=== PATIENT | female | born 1940 | race Caucasian/White ===

== ENCOUNTER 2019-04-18 16:28 | Inpatient (IN) | payer MEDICARE, OTHER ==
[~2019-04-18] VITALS: Ht 162.6 cm; Wt 83.2 kg
--- NOTE | 2019-04-18 17:07 | NUR ---
KALEN Barajas assisted pt out of car, brought to unit in wheelchair, hendrix to DD, yellow-lionel urine, daughter Erin accompained pt. Pt has nausea, reports having a milkshake on the way here.
[2019-04-18] MEDS ORDERED: DULCOLAX S10 MG/SUPP RC (17:30)
[2019-04-18] MEDS ORDERED: CORRECTIVE LAXAT5 MG PO (17:30)
[2019-04-18] MEDS ORDERED: GOOD NEIGH1200 MG/15 PO (17:32)
[2019-04-18] MEDS ORDERED: ROBAXIN 75750 MG/TAB PO (17:33)
[2019-04-18] MEDS ORDERED: PERCOCET 325 MG1 TA2 PO (17:34)
[2019-04-18] MEDS ORDERED: ZOFRAN 4MG T4 MG/TAB PO (17:34)
[2019-04-18] MEDS ORDERED: DULCOLAX STOOL100 MG PO (17:35)
[2019-04-18] MEDS ORDERED: CALCIUM CITRATE1 TA7 PO (17:35)
[2019-04-18] MEDS ORDERED: HCTZ 25MG TAB25 MG PO (17:35)
[2019-04-18] MEDS ORDERED: LIDODERM 5% PATC1 EA TP (17:36)
[2019-04-18] MEDS ORDERED: MOTRIN 600600 MG/TAB PO (17:36)
[2019-04-18] MEDS ORDERED: NEURONTIN100 MG/CAP PO (17:37)
[2019-04-18] MEDS ORDERED: CLARITIN 1010 MG/TAB PO (17:38)
[2019-04-18] MEDS ORDERED: FLONASE NASAL S16 GM NS (17:39)
[2019-04-18] MEDS ORDERED: ABILIFY 15MG TA15 MG PO (17:39)
[2019-04-18] MEDS ORDERED: TENORMIN 5050 MG/TAB PO (17:40)
[2019-04-18 17:46] VITALS: BP 150/51; PULSE 76; TEMP 98.9
[2019-04-18 17:48] VITALS: BP 150/51; PULSE 76; TEMP 98.9
[2019-04-18] MEDS ORDERED: ROXICODONE 55 MG/TAB PO (18:03)
--- NOTE | 2019-04-18 19:35 | NUR ---
Pt resting in bed. Admission assessment completed. No distress noted. Daughter went home for the night. Pt denies pain at this time. Reports that she is feeling slightly nauseated. She refused her dinner tray. Respiraitons are even and unlabored. Lungs clear to ausculation. Abdomen soft, nontender but rounded. BS are hypoactive. Pt has not had a BM since 04/15. Bowel meds will be started at HS. Indwelling hendrix catheter to dependent drainage with lionel, cloudy urine in bag. Catheter will be discontinued in AM. Bilateral TEDS in place. Pedal pulses equal, strong. Pt is alert and oriented. No needs noted. Will continue to monitor.
--- NOTE | 2019-04-18 20:02 | NUR ---
Bedside report to MINH Liu. Erin padilla. Reviewed plan to administer bowel meds and nausea meds and oxycodone for pain. Turned bed alarm on, TEDS to BLE, knees elevated on pillows, pt avoids twisting, some difficulty with communication: understanding/responding appropriately, reports hearing aids at home. Reported to Alexa that 5 page admission needs completed. Ordered pt supper but declined. Suarez to dependent drainage.
--- NOTE | 2019-04-18 20:30 | NUR ---
Pt drank was able to tolerate an Ensure, as well as other fluids, but refuses any food. HS meds given. Bilateral SCDs placed. Catheter care preformed.
--- NOTE | 2019-04-19 05:40 | NUR ---
Pt c/o pain 5/10 in back. PRN zofran administered prior to pain medication per patient request.
--- NOTE | 2019-04-19 05:50 | NUR ---
Suarez catheter discontinued per MD order. 9cc removed from catheter balloon prior to discontinuation. Well tolerated by patient.
[2019-04-19 06:00] VITALS: BP 143/57; PULSE 76; TEMP 98.6
--- NOTE | 2019-04-19 08:55 | NUR ---
Bedside report from MINH Liu with MINH Graves orientee. HOB at 60*, call lt in reach, eating breakfast. Cont c/o nausea, drowsiness from Percoset, requests oxycodone instead. Has not voided since d/c simeon per Alexa. Left message for IPR director as to which physician will do H&P. Dressing to low back. Enc PO intake. Pt with PT per w/c with emesis basin, requested PT inform RN of any output.
--- NOTE | 2019-04-19 09:00 | NUR ---
REPORT RECEIVED FROM TEACHERS AIDE NURSE, PATIENT REPORTS SHE DOES NOT LIKE TAKING PERCOCET, THAT IT MAKES HER FEEL OFF. AFTER DISCUSSION, STATES SHE WOULD LIKE TO TAKE OXYCODONE INSTEAD. INFORMED PATIENT DR RAMOS WILL BE INFORMED THAT SHE DOES NOT WANT TO TAKE PERCOCET ANYMORE. CALL LIGHT/WATER PITCHER WITHIN PATIENT'S REACH. BED IN LOW POSITION.
--- NOTE | 2019-04-19 15:00 | NUR ---
PATIENT REFUSED OFFER OF ZOFRAN WHEN OFFERED OXYCODONE, REPORTS NO STOMACH ISSUES. UP WITH 1 PERSON ASSIST TO BATHROOM WITH GAIT BELT/WALKER. REINFORCED WITH PATIENT AND DAUGHTER TO CALL STAFF WHEN NEEDING TO GO TO BATHROOM AFTER OBSERVED BY STAFF AIDE THAT PATIENT HAD BEEN WALKED TO BATHROOM BY DAUGHTER AT PATIENT'S INSISTENCE. PATIENT AGREED TO CALL STAFF FROM NOW ON.
--- NOTE | 2019-04-19 16:27 | NUR ---
Agree with Ely's assessment, noted lungs coarse throughout at this time. Observed dressing change to low lumbar area, small amount of sanguinous drainage, edith intact, old dressing removed, new gauze and hypafix applied. Pt adi well while sitting bedside. Home meds returned to daughter, Erin, papers signed. Pt to bed with SCDs to BLE, edu about log rolling.
[2019-04-19 18:17] VITALS: BP 152/65; PULSE 80; TEMP 99.5
--- NOTE | 2019-04-19 18:59 | NUR ---
REPORT GIVEN TO CHALK TESTER NURSE WITH CARE RESUMED. CALL LIGHT/WATER PITCHER WITHIN PATIENT'S REACH. PATIENT RESTING QUIETLY WITH EYES CLOSED.
--- NOTE | 2019-04-19 20:45 | NUR ---
Upon assessment at this time patient is assisted to bathroom; standby assist with gait belt and walker. Patient tolerated well. Dressing to lower back is CDI, placed this afternoon per day shift. Patient has voided adequately throughout day since having hendrix discontinued in am; clear yellow urine noted. Patient is reporting pain at 7/10 to low back, PRN Arin given at this time with HS medications. No other needs reported/observed.
[2019-04-20 05:49] VITALS: BP 149/56; PULSE 71; TEMP 98.5
--- NOTE | 2019-04-20 07:07 | NUR ---
Patient report given to MINH Roman and MINH Ambrose. Patient slept well throughout the night, tolerated getting up to bathroom with standby assist, walker and gait belt.
--- NOTE | 2019-04-20 07:23 | NUR ---
Patient report given to MINH Ambrose. Patient reported resting well throughout the night, still resting at this time. No needs observed.
--- NOTE | 2019-04-20 07:35 | NUR ---
Report from MINH Gardiner with MINH Graves orientee to care for pt today. Pt called to toilet, returned to bed by staff, eating breakfast.
--- NOTE | 2019-04-20 08:01 | NUR ---
RECEIVED REPORT FROM RETAIL LOAN OFFICER NURSE. CURRENTLY PATIENT RESTING IN BED WITH EYES CLOSED, DOES NOT AROUSE WHEN ROOM ENTERED WITH OBSERVED SNORING BREATHING BUT NONLABORED AND EVEN/NORMAL DEPTH AND RATE. CALL LIGHT/WATER/JUICE WITHIN PATIENT'S REACH. BED IN LOW POSITION, TV ON. SCD OFF CURRRENTLY.
--- NOTE | 2019-04-20 15:00 | NUR ---
DRESSING CHANGED TO LOW BACK INCISION, INTACT WITH LATESHA, OBSERVED DRIED RED DRAINAGE TO OLD DRESSING MOSTLY TO LOWER HALF OF DRESSING, NO ACTIVE OOZING FROM INCISION OBSERVED. NO REDNESS TO INCISION, DID OBSERVED SOME REDNESS TO AREAS FROM TAPE/ADHESIVE WITH PATIENT COMPLAINING OF ITCHING. ALCOHOL PAD LIGHTLY APPLIED TO RED/ITCHING TAPE AREAS THAT PATIENT REPORTED HELPED WITH ITCHING C/O. UP TO BATHROOM WITH 1 SBA W/GAIT BELT/WHEELED WALKER WITH NO PROBLEMS. STILL NO BM YET TODAY.
[2019-04-20 18:00] VITALS: BP 149/59; PULSE 79; TEMP 98.6
--- NOTE | 2019-04-20 20:00 | NUR ---
PT RESTING IN BED. FLAT AFFECT. BUE/ BLE WARM AND PINK. DENIES NUMBNESS OR TINGLING. SEE MAR FOR PAIN MEDICATIONS GIVEN. ASSISTED TO BR WITH WALKER. NEEDS MIN ASSIST TO SITTING BUT ABLE TO STAND INDEPENDENTLY. VOIDING WITHOUT DIFFICULTIES. BACK TO BED. CALL LIGHT IN REACH. BED ALARM SET.
--- NOTE | 2019-04-20 21:09 | NUR ---
REPORTS GIVEN TO SEWER BRICKLAYER NURSE. PATIENT RESTING WITH EYES CLOSED, DOES NOT AROUSE WITH ENTERING ROOM FOR REPORT.
[2019-04-21 03:09] VITALS: BP 146/58; PULSE 94; TEMP 98
--- NOTE | 2019-04-21 06:35 | NUR ---
UP IN RECLINER THIS AM. C/O BACK INCISIONAL PAIN. SEE AUG.CHAIR ALARM SET. CALL LIGHT IN REACH.
--- NOTE | 2019-04-21 08:12 | NUR ---
Patient resting in recliner at this time, call light in reach and chair alarm is on. Patient reports only drinking ensure when at home. Feels breakfast plate serves way too much. Is over whelming for her to see. Patient uses IS correctly and reaches 1500. Will continue to monitor.
--- NOTE | 2019-04-21 13:31 | NUR ---
Admission QIM scores were reviewed by the team. Code of 5 chosen for oral hygiene was determined by team discussion to be the most usual performance before interventions for this patient during the assessment period. Code of 3 chosen for lying to sitting on side of bed was determined by team discussion to be the most usual performance before interventions for this patient during the assessment period. Code of 4 chosen for Chair/[id number]-ol-[id number] transfer was determined by team discussion to be the most usual performance for this patient during the assessment period.--Sugey Baig, PD
--- NOTE | 2019-04-21 15:24 | NUR ---
RAHEEL met with the patient to discuss discharge plan. The patient lives alone in [place]. She states that her [id number] rents a room in her house. She states that her daughter, Erin Perez (ph#[phone]), lives close by. She reports needing assistance with bathing and has a cane, walker, and wheelchair. She states that her daughter helps her with the bathing and that she used to have home health. The patient's PCP is a Dr. Daly at the [facility] in [place] and she also receives primary care from Dr. Peggy Johansen at [facility]. She receives her medications through the [facility] and the [facility]. She reports no difficulties obtaining her meds. The patient does not have advanced directives in EMR, but she states that she does have them completed. She states that her daughter, Erin, is her DPOA-HC. RAHEEL then contacted the patient's daughter and set up a family meeting for Sunday, 04/23, at 1400. RAHEEL informed IPR Director. RAHEEL to continue to follow.
[2019-04-21 18:25] VITALS: BP 155/51; PULSE 77; TEMP 98.4
[2019-04-21 19:54] LABS: PH 8 (5-8); SQUAMOUS EPITHELIAL 0-2 /hpf; URINE APPEARANCE Clear; URINE BACTERIA None Seen /hpf; URINE BILIRUBIN Negative (NEGATIVE); URINE BLOOD Negative (NEGATIVE); URINE COLOR Yellow; URINE GLUCOSE Negative (NEGATIVE); URINE KETONE Negative (NEGATIVE); URINE LEUKOCYTE ESTERASE Trace (NEGATIVE); URINE NITRATE Negative (NEGATIVE); URINE PROTEIN(semi-quant) Negative (NEGATIVE); URINE RBC 0-2 /hpf; URINE UROBILINOGEN Negative (NEGATIVE)
--- NOTE | 2019-04-21 21:00 | NUR ---
PT RESTING IN BED. FLAT AFFECT. DENIES NEED FOR PAIN MED AT THIS TIME. NO NUMBNESS OR TINGLING TO EXTREMITIES. AMB WITH WALKER. STEADY GAIT. VOIDING WITHOUT DIFFICULTY. UA OBTAINED EARLIER AND SENT TO LAB.
[2019-04-21 21:11] LABS: COLLECTION METHOD CLEAN CATCH
--- NOTE | 2019-04-22 03:33 | NUR ---
PT RESTING. NO DISTRESS NOTED.
[2019-04-22 05:32] VITALS: BP 140/59; PULSE 74; TEMP 97.3
--- NOTE | 2019-04-22 07:17 | NUR ---
REPORT RECEIVED FROM NIGHT NURSE, PATIENT RESTING IN BED WITH CALL LIGHT/WATER CUP WITHIN REACH BUT WANTED TO GO TO BATHROOM, AMB W/1 ASST/GAIT BELT/WHEELED WALKER WITH OBSERVED STEADY GAIT.
--- NOTE | 2019-04-22 09:02 | NUR ---
OBSERVED PATIENT LEANING OVER AT WAIST TO HAVE PERICARE AFTER BM, REMINDED PATIENT OF BACK PRECAUTIONS AND NOT TO LEAN FORWARD.
--- NOTE | 2019-04-22 12:20 | NUR ---
REPORTS PAIN LEVEL 6/10 TO BACK, REFUSES OFFER OF PAIN MEDS AT THIS TIME.
--- NOTE | 2019-04-22 13:40 | NUR ---
CONFIRMED WITH LAB, URINE SPEC STILL AVAILABLE FROM 04/21. ORDER WILL BE PROCESSED FOR UA CULTURE.
--- NOTE | 2019-04-22 15:03 | NUR ---
VENIPUNCTURE WITH #22 GUAGE INSYTE W/SALINE LOCK, FLUSHED WITHOUT PROBLEMS TO LEFT LOWER FOREARM PER DO FOR IV ROCEPHIN TX TO INITIATE.
[2019-04-22 15:10] VITALS: BP 151/48; PULSE 69; TEMP 97.5
--- NOTE | 2019-04-22 16:17 | NUR ---
Flushed INT after ABX, no S/S complications.
--- NOTE | 2019-04-22 20:00 | NUR ---
Shift assessment complete. Patient ambulated to BR with assist x1 and walker. States pain 3/10 in back. Drsg on midline back CDI. Prn pain medication given per pt request. Back to bed. SCD's placed on BLE. Daughter at bedside. Denies further needs at this time. Will continue to monitor.
[2019-04-23 03:13] VITALS: BP 144/58; PULSE 72; TEMP 97.6
[2019-04-23 12:45] VITALS: BP 130/54; PULSE 68
--- NOTE | 2019-04-23 12:47 | NUR ---
Patient reporting a headache and given prn Tylenol. VSS - Will continue to monitor.
--- NOTE | 2019-04-23 17:15 | NUR ---
SW attended a family meeting with the patient and her daughter, Erin. Also present was IPR Director, PT, OT, & ST. IPR Director, Sugey, started by explaining the purpose of the meeting. PT/OT/ST discussed the patient's progress and their recommendations of a discharge for next Sunday with home health PT/OT and the possibility of needing a walker, depending on her progress. The patient's daughter reports that home health will not work, due to the patient's house having bed bugs. The patient and her daughter were agreeable to outpatient PT/OT. The patient's daughter reports that she would be able to provide transport, until the patient is able to drive. The team answered all patient and daughter's questions. SW then presented and discussed the IPR Team Conference Note with the patient and reviewed the plan. The patient was in agreeance to a discharge for next Sunday. SW provided the patient with a list of the different therapy centers in [place]. The patient plans to look it over. The patient also provided SW with the [facility] phone number #[phone] to inform their SW about the services she needs. The patient had no other questions or concerns for SW at this time. SW will need to follow up on outpatient therapy preference and contact the Women's Clinic. SW to continue to follow.
--- NOTE | 2019-04-23 18:01 | NUR ---
Patient resting in bed at this time, call light in reach and bed alarm is on. Patient was a one assist with walker to and from the bathroom. Denies pain at this time. Patient had a shower today and OT covered incision and made sure to remove tape immediatly following to prevent any irritation. Patient's daughter stopped by and visited. Patient culture has come back normal at this time, but Dr. Bennett wants to continue the Rocephin at this time until the final culture results have come in. Will continue to monitor. Patient doesn't like wearing her gema hose, but did agree to put them on this afternoon. Will continue to monitor.
[2019-04-23 18:22] VITALS: BP 139/53; PULSE 66; TEMP 98.2
--- NOTE | 2019-04-23 22:22 | NUR ---
PT RESTING IN BED, WATCHING TV. DENIES NEED FOR PAIN MEDICATION AT THIS TIME. PT REPORTS LOOSE STOOLS. BOWEL MEDS HELD. STILL HAS MILD BURING WITH VOIDS. GETS ROCEPHIN IV FOR THIS. KNEE HI JACE HOSE OFF. SCD'S ON BILAT. CALL LIGHT IN REACH. BED ALARM SET.
--- NOTE | 2019-04-24 04:51 | NUR ---
PT HAS SLEPT WELL THIS NIGHT.
[2019-04-24 06:00] VITALS: BP 127/49; PULSE 63; TEMP 97.8
--- NOTE | 2019-04-24 10:44 | NUR ---
Patient working with group therapy at this time. This nurse received call from Nevaeh reporting that patient was not feeling like herself. This nurse took vitals and they were stable see chart. VSS. Blood sugar checked and was in normal range. Patient was given some water thinking that maybe she was just dehydrated this morning. Will continue to monitor.
[2019-04-24 16:36] VITALS: BP 132/40; PULSE 73; TEMP 97.6
--- NOTE | 2019-04-24 20:26 | NUR ---
Patient did not have any other episodes such as not feeling right this afternoon. She had visitors this afternoon. She received her IV antibiotic. Dr. Bennett changed this IV antibiotic to PO to start this evening. Patient wore gema hose today. She was able to control her pain with prn Arin and Tylenol today. Patient attended all therapies today. Denied questions this evening. Will continue to monitor. Reported off to night nurse.
--- NOTE | 2019-04-24 21:00 | NUR ---
PT REFUSED BOWEL MEDS AND GABAPENTIN TONIGHT. PT RELATES HAD SEVERAL LOOSE BOWL MOVEMENTS YESTERDAY AND ONE TODAY. GABAPENTIN REFUSED D/T CAUSED INCREASED FATIGUE AND STRESS INCONTINENCE TO INCREASE.
--- NOTE | 2019-04-24 23:26 | NUR ---
ASSISTED TO BR /WALKER. SBA ONLY. VOIDING WITH STILL SOME BURNING. UAC CONTAMINATED. STILL CONTINBUING WITH ORAL ABT.
[2019-04-25 06:00] VITALS: BP 128/64; PULSE 67; TEMP 97.8
--- NOTE | 2019-04-25 13:13 | NUR ---
Morning Report from MINH Turcios. Pt plans to discharge home Sunday with outpatient therapy. Pt declined pain meds while still in bed, once she toileted, she requested an Oxycodone, provided, then she called for the second one an hour later. Pt showered this morning, OT informed nurse that the dressing may have gotten wet. Removed old dressing, scant dark dry pieces of scabs coming off. Presley intact. No active drainage, edges well approximated. Applied new telfas with a minimal amount of paper tape, pt adi well. INT flushes without complications. Pt disliked lunch, states she was considering asking [facility]. Reports the carrots are still too tough. No c/o nausea. Reminded pt of back restrictions.
--- NOTE | 2019-04-25 15:12 | NUR ---
RAHEEL attempted to contact the [facility]. RAHEEL left them a voicemail. RAHEEL met with the patient to follow up. She states that she is doing good and that therapy has been going well, except for PT today. She states that PT gave her some back pain. The patient states that she was able to look over the therapy center list and would prefer the [facility], due to it being closer to where she works. She states she prefers the PT/OT appointment on the same down and in the afternoon, on Sunday/ if available. RAHEEL contacted Trey at the [facility]. Trey reports that they do not have their bookkeeper receptionist in today and would not be able to get that set up until Sunday. RAHEEL will need to contact [facility] on Sunday. RAHEEL to continue to follow.
[2019-04-25 15:50] VITALS: BP 138/57; PULSE 67; TEMP 98.1
--- NOTE | 2019-04-25 19:08 | NUR ---
Bedside report to MINH Stinson. Pt in bed, turned bed alarm on, call lt in reach, glasses in place, SCDs on. Pt denies needs, drinks on tray.
--- NOTE | 2019-04-25 20:00 | NUR ---
HS meds all reviewed and given. Denies need for pain med and reports neurontin will be sufficient/makes her drowsy. Up standby assist with walker to the bathroom and ambulates in hallway with nurse. Gait slow steady. Snack of cam crackers given.
--- NOTE | 2019-04-26 02:11 | NUR ---
Patient has been resting with eyes closed. Respirations with ease.
[2019-04-26 04:34] VITALS: BP 133/45; PULSE 60; TEMP 98.5
--- NOTE | 2019-04-26 08:00 | NUR ---
PATIENT IS SITTING UP WITH HER BREAKFAST TRAY IN THE CHAIR THIS MORNING. PATIENT IS A&OX4. VSS. BOWEL SOUNDS ACTIVE ALL FOUR QUADRANTS. PATIENT TOLERATING DIET WITHOUT ANY COMPLAINTS OF N/V. LUMBAR SPINAL INCISION DRESSED WITH GAUZE AND TAPE AND IS CD&I. POSITIVE PEDAL PULSES EQUAL BILATERALLY. LEFT FOREARM TO INT. CALL LIGHT WITHIN REACH. PATIENT DENIES ANY OTHER NEEDS AT THIS TIME.
--- NOTE | 2019-04-26 16:36 | NUR ---
PATIENTS SPINAL DRESSING REMOVED. LATESHA IN PLACE WITH EDGES WELL APPROXIMATED. SPINAL INCISION RE-DRESSED WITH 3 TELFA GAUZE PADS AND PAPER TAPE. PATIENT REPOSITIONED IN BED. PATIENT GIVEN PRN PO PAIN MEDICATION FOR PAIN RATED AN 6/10 ON A 0-10 SCALE. CALL LIGHT WITHIN REACH. PATIENT DENIES ANY OTHER NEEDS AT THIS TIME.
[2019-04-26 16:52] VITALS: BP 117/48; PULSE 61; TEMP 98.3
--- NOTE | 2019-04-26 18:59 | NUR ---
REPORT GIVEN TO MINH LEAL.
--- NOTE | 2019-04-26 19:07 | NUR ---
Patient resting quietly in bed. Report received from Renetta WILKINSON.
--- NOTE | 2019-04-26 20:15 | NUR ---
HS meds all reviewed and given. Denies need for pain med at this time. Ambulates to the bathroom and around to surgical station with walker accompanied by nurse and back to room. Declines snack.
--- NOTE | 2019-04-27 02:10 | NUR ---
Patient rests with eyes closed. Respirations with ease.
[2019-04-27 04:46] VITALS: BP 138/50; PULSE 70; TEMP 98.3
--- NOTE | 2019-04-27 12:51 | NUR ---
Patient resting in recliner at this time, call light in reach and alarm is on. She had visitors this morning and this afternoon. Patient was a one assist with walking with walker to the recliner and then returning to her bed. She was a one assist with transferring to the toilet. She wiped herself today independently. Dressing to back CDI. Reports pain 5/10 to back given prn pain meds. Will continue to monitor.
--- NOTE | 2019-04-27 15:49 | NUR ---
Patient refused to have her dressing changed to her back reporting that someone just did it. Dressing has no drainage and is clean dry and intact at this time. Will continue to monitor.
--- NOTE | 2019-04-27 15:51 | NUR ---
Patient lying in bed watching television, call light in reach and denies questions at this time.
[2019-04-27 17:20] VITALS: BP 138/72; PULSE 89; TEMP 98.9
--- NOTE | 2019-04-27 21:42 | NUR ---
Pt doing very well. standby assist for all cares. ambulated in hallway about 200ft. pm meds given. no concerns at this time. call light within reach, will continue to monitor
--- NOTE | 2019-04-28 03:09 | NUR ---
Pt has slept all night. No issues noted. Call light within reach, will continue to monitor
[2019-04-28 04:42] VITALS: BP 132/52; PULSE 66; TEMP 97.8
--- NOTE | 2019-04-28 09:14 | NUR ---
Bedside report from MINH Smallwood. Pt was asleep in bed, turned bed alarm on, pt denied pain. Pt calls appropriately to toilet, one asst by KALEN Barajas.
--- NOTE | 2019-04-28 09:39 | NUR ---
Pt's HR skips about every 7th beat, with some additional irregularity, slight murmur. Pt wants to be independent in room with walker, will ask therapy, observed pt transfer out of chair without device while KALEN Barajas was bringing to pt, she ambulated quick and steady to BR and returned to chair. Pt able to report her back precautions.
--- NOTE | 2019-04-28 10:41 | NUR ---
Pt out of shower, removed old dressing, no drainage on dressing, edith intact, edges well approximated, applied new telfa x2 and secured with paper tape per pt request. Pt adi well, cont with OT
--- NOTE | 2019-04-28 12:00 | NUR ---
Left message w/ neurosx office to clarify if pt needs to cont to cover incision after edith are removed by IPR staff prior to dc home.
--- NOTE | 2019-04-28 12:32 | NUR ---
Pt requested returning to general diet, she does not like the [facility] soft d/t texture and appearance of foods. Pt ate some mashed potatoes at lunch. Has ensure drink. Changed to reg diet per pt and Dr. Bennett.
--- NOTE | 2019-04-28 13:07 | NUR ---
Ordered pt an alt meal for lunch at 1240
[2019-04-28 15:20] VITALS: BP 138/47; PULSE 69; TEMP 98.1
--- NOTE | 2019-04-28 20:35 | NUR ---
Bedside report to MINH Santos. Pt was made mod I in Rm w/ walker. Bedresting watching TV, pleasant, glasses and slippers in place. Pt denies needs at this time. Pt liked returning to General diet. Birthday is tomorrow. Enc to call for any needs. Did not receive return call from neurosx office. Pt refused TEDS.
--- NOTE | 2019-04-29 04:00 | NUR ---
Patient has rested well throughout the night. Denies any need for pain medication. Independent in the room and utilizes the restroom independently. Dressing remains clean, dry, and intact to back. Will continue to monitor patient.
[2019-04-29 04:57] VITALS: BP 130/80; PULSE 65; TEMP 98.2
--- NOTE | 2019-04-29 08:01 | NUR ---
Patient sitting up on edge of bed eating breakfast. Alert and oriented x 3. Shift assessment complete. Patient independent in room with walker. States pain 6/10 after roxycodone administration, tylenol given per patient request. States generalized pain. Denies further needs at this time.
--- NOTE | 2019-04-29 09:38 | NUR ---
Explosives Truck Driver contacted [facility] to follow up on outpatient PT/OT appointments. SW was advised patient already had appointment for PT set up for 05/09/19 at 11:00am. RAHEEL made appointment for OT for 05/09/19 at 1:00pm and notified RNAisha.
[2019-04-29 16:48] VITALS: BP 132/48; PULSE 61; TEMP 97.4
--- NOTE | 2019-04-29 18:25 | NUR ---
Patient has done well throughout the day. Denies pain at this time. Denies further needs at this time. Dressing to back removed, edith intact, no drainage present. Denies further needs at this time. WIll report off to grocery specialist.
--- NOTE | 2019-04-29 18:50 | NUR ---
Bedside shift report received from Stacy WILKINSON. Patient Rests in bed. Denies needs at this time.
--- NOTE | 2019-04-29 20:35 | NUR ---
Patient mod I in room and ambulates with walker without difficulty. HS meds reviewed and given. Declines bowel med,states had bm this am.
--- NOTE | 2019-04-29 23:28 | NUR ---
RESTING WITH EYES CLOSED, LAYING ON RIGHT SIDE WITH UNRESTRICTED BREATHED OBSERVED.
--- NOTE | 2019-04-30 02:00 | NUR ---
Patient rests on right side. Respirations with ease.
[2019-04-30 05:18] VITALS: BP 126/56; PULSE 64; TEMP 98.1
--- NOTE | 2019-04-30 05:24 | NUR ---
Patient reports she slept well. Awakened this am by nurse for vitals and fresh icewater given. Denies pain or needs. States was up only once to the bathroom during the night.
--- NOTE | 2019-04-30 09:17 | NUR ---
This nurse removed edith to patients lower back removing 41 edith total. Edges to incision are well approximated. Patient tolerated with minimal discomfort reported. Will continue to monitor.
--- NOTE | 2019-04-30 09:24 | NUR ---
Patient is independent in her room at this time. Denies questions.
--- NOTE | 2019-04-30 12:27 | NUR ---
Patient resting in recliner independent in her room. Patient reporting pain less at this time. Will continue to monitor.
--- NOTE | 2019-04-30 13:46 | NUR ---
[employer]ables Worker was notified by JESSICA Mayes Director that patient requires front wheeled walker upon discharge. SW met with patient and presented DME Choice Form. Patient selected [facility] and provided signature. RAHEEL placed choice form in chart. RAHEEL faxed completed order, face sheet, H&P, and therapy notes to [facility] and then contacted Rayna at [facility]. RAHEEL followed up with patient later in the afternoon and confirmed walker had been delivered to her. No additional concerns at this time.
[2019-04-30] MEDS ORDERED: Lidocaine 4% Patch TP (14:29)
[2019-04-30] MEDS ORDERED: ROXICODONE 55 MG/TAB PO (14:37)
--- NOTE | 2019-04-30 16:06 | NUR ---
Ethanol Maintenance Mechanic met with patient and reviewed IM form. Patient understands rights and provided signature. SW placed original in chart and provided copy to patient. RAHEEL faxed discharge orders to [facility] as patient will follow up with outpatient PT/OT.
--- NOTE | 2019-04-30 17:36 | NUR ---
Patient Health Summary, Discharge Summary, and Home meds printed and reviewed with patient. Stressed importance of follow up appointments. Reviewed medications, provided printed prescription for Lidocaine patch and Roxicodone. Belonging gathered by JYOTI/Cailin including regular walker, wheeled walker, glasses, IS, Cane, grab bars, cell phone, computer, chargers. Patient transported via wheelchair by JYOTI/Cailin and seatbelted for ride home with family. Patient denied questions.
== END 2019-04-30 15:45 | disposition home or self-care (01) | DRG 948 ==
PROVIDERS: ADMIT Internal Medicine
DX: R53.81 Other malaise (principal); N39.0 Urinary tract infection, site not specified; M48.061 Spinal stenosis, lumbar region without neurogenic claudication; F32.9 Major depressive disorder, single episode, unspecified; E78.5 Hyperlipidemia, unspecified; D64.9 Anemia, unspecified; I10 Essential (primary) hypertension; G47.33 Obstructive sleep apnea (adult) (pediatric); Z79.891 Long term (current) use of opiate analgesic; Z87.891 Personal history of nicotine dependence; Z90.710 Acquired absence of both cervix and uterus; Z88.5 Allergy status to narcotic agent; Z88.8 Allergy status to other drugs, medicaments and biological substances
CPT/HCPCS: 99222-AI; 99232-AI; 99239; A4216; J0696

== ENCOUNTER 2020-01-01 14:15 | Outpatient (RCR) | payer MEDICARE, OTHER ==
[~2020-01-01 14:15] MED LIST: ABILIFY 15MG TA15 MG PO; CALCIUM CITRATE1 TA7 PO; CLARITIN 1010 MG/TAB PO; CORRECTIVE LAXAT5 MG PO; DULCOLAX S10 MG/SUPP RC; DULCOLAX STOOL100 MG PO; FLONASE NASAL S16 GM NS; FLONASEALLERGY NS; GOOD NEIGH1200 MG/15 PO; HCTZ 25MG TAB25 MG PO; IBU600 MG PO; LIDODERM 5% PATC1 EA TP; Lidocaine 4% Patch TP; MASON NATURAL2000 IU PO; MOTRIN 600600 MG/TAB PO; NEURONTIN100 MG/CAP PO; PERCOCET 325 MG1 TA2 PO; ROBAXIN 75750 MG/TAB PO; ROXICODONE 55 MG/TAB PO; TENORMIN 2525 MG/TAB PO; TENORMIN 5050 MG/TAB PO; ZOFRAN 4MG T4 MG/TAB PO
[2020-01-02] MEDS ORDERED: OS-CAL 500 + D1 TAB (07:00)
[2020-01-02] MEDS ORDERED: [UNRECOGNIZED DRUG - OTHER] DT (07:01)
[2020-01-02] MEDS ORDERED: MOBIC 7.5MG7.5 MG PO (07:04)
[2020-01-02] MEDS ORDERED: LIDODERM 5% PATC1 EA TP (07:05)
[2020-01-02] MEDS ORDERED: OMNICEF 300MG300 MG PO (15:26)
== END 2020-02-04 | disposition still patient (30) ==
LOC: MKS.ESL.PT
DX: M54.5 Low back pain (principal); R53.1 Weakness; R20.0 Anesthesia of skin; R29.898 Other symptoms and signs involving the musculoskeletal system; G89.29 Other chronic pain

== ENCOUNTER 2020-01-02 06:18 | Emergency (ER) | payer MEDICARE, OTHER ==
[~2020-01-02] VITALS: Ht 160 cm; Wt 84.1 kg
[2020-01-02] MEDS ORDERED: OS-CAL 500 + D1 TAB (07:00)
[2020-01-02 07:01] LABS: COLLECTION METHOD CLEAN CATCH
[2020-01-02] MEDS ORDERED: [UNRECOGNIZED DRUG - OTHER] DT (07:01)
[2020-01-02] MEDS ORDERED: MOBIC 7.5MG7.5 MG PO (07:04)
[2020-01-02] MEDS ORDERED: LIDODERM 5% PATC1 EA TP (07:05)
[2020-01-02 07:20] LABS: MUCOUS Present /lpf; PH 6 (5-8); SQUAMOUS EPITHELIAL 0-2 /hpf; URINE APPEARANCE Clear; URINE BACTERIA None Seen /hpf; URINE BILIRUBIN Negative (NEGATIVE); URINE BLOOD Negative (NEGATIVE); URINE COLOR Yellow; URINE GLUCOSE Negative (NEGATIVE); URINE KETONE Trace (NEGATIVE); URINE LEUKOCYTE ESTERASE 1+ (NEGATIVE); URINE NITRATE Negative (NEGATIVE); URINE PROTEIN(semi-quant) Negative (NEGATIVE); URINE RBC 0-2 /hpf; URINE UROBILINOGEN Negative (NEGATIVE)
[2020-01-02 07:45] LABS: BASO % 0.4 % (0.0-2.0); EOS # 0.1 (0.0-0.7); EOS % 0.9 % (0-4.0); GRAN # 7.7 (1.4-6.5); HEMATOCRIT 44.6 % (37.0-47.0); HEMOGLOBIN 14.3 g/dl (12.5-16.0); LYMPH # 1.7 (1.2-3.4); LYMPH % 16.8 % (20.0-51.0); MEAN CELL VOLUME 90 fl (80.0-100.0); MEAN CORPUSCULAR HEMOGLOBIN 29 pg (27.0-31.0); MEAN CORPUSCULAR HGB CONC 32 g/dl (33.0-37.0); MEAN PLATELET VOLUME 11.2 fl (7.4-10.4); MONO # 0.7 (0.1-0.6); MONO % 6.5 % (1.7-9.3); PLATELET COUNT 214 K/mm3 (130-400); RED BLOOD COUNT 4.94 M/mm3 (4.10-5.30); REDCELL DISTRIBUTION WIDTH-CV 14.3 % (11.5-14.5)
[2020-01-02 07:57] LABS: ALANINE AMINOTRANSFERASE 17 U/L (4-34); ALBUMIN 4.1 gm/dL (3.5-5.0); ALKALINE PHOSPHATASE 93 U/L (50-136); ANION GAP 6 mmol/L (7-16); AST,SGOT 26 U/L (15-37); BILIRUBIN,TOTAL 0.8 mg/dL (0.0-1.0); BLOOD UREA NITROGEN 19 mg/dL (7-17); CALCIUM 8.9 mg/dL (8.4-10.2); CARBON DIOXIDE 30 mmol/L (22-30); CHLORIDE 101 mmol/L (98-107); CREATININE, serum 0.65 (0.52-1.25); GLUCOSE 108 mg/dL (74-106); POTASSIUM 3.7 mmol/L (3.4-5.0); SODIUM 137 mmol/L (137-145); TOTAL PROTEIN 7.4 gm/dL (6.4-8.2)
[2020-01-02 08:09] LABS: TROPONIN-I < 0.012 ng/mL (0.000-0.035)
--- NOTE | 2020-01-02 09:34 | NUR ---
central supply worker met with patient in the ED as patient has had difficulty with ambulation and falling in the last month. 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 Patient is awaiting an MRI. Worker contacted patient's daughter, Erin, per patient request. Erin states that she and family have had to drive patient to work everyday and that she slowly ambulates with walker into her job site. Erin stated that 2 days ago, patient's brother in law had to help her pull up her pants after toileting. Worker collaborated with physician and nurse regarding disposition options. Will await a physical therapy consult after results of MRI to help with disposition. Worker contacted Althea with [facility] and requested a screening. Patient's primary care provider is Dr Johansen at the [facility]. Erin states that patient has traditional [place] and [place] benefits. Patient obtains some medications through the [facility] and some locally.
--- NOTE | 2020-01-02 13:01 | NUR ---
Physical therapy evaluated patient and recommend rehab placement as home would not be safe at this time. Inpatient Rehab and [facility] do not have openings today. [facility] screened and can accept skilled from the ED. Worker met with patient and contacted daughter, Bethel and advised of the above information and they are both agreeable to rehab plans. Awaiting MRI results at this time.
[2020-01-02] MEDS ORDERED: OMNICEF 300MG300 MG PO (15:26)
--- NOTE | 2020-01-02 16:47 | NUR ---
RAHEEL collaborated with MINH Leiva who advised patient being transferred to [place]. Abbie to call patient's daughter. RAHEEL notified Jarrod at [facility].
[2020-01-02 18:26] VITALS: BP 154/70; PULSE 68; TEMP 98
== END 2020-01-02 18:26 | disposition short-term general hospital (02) ==
LOC: COL.ER 06:18
PROVIDERS: Emergency Medicine
DX: N39.0 Urinary tract infection, site not specified (principal); R53.1 Weakness; R20.0 Anesthesia of skin; Z79.51 Long term (current) use of inhaled steroids; R40.2412 Glasgow coma scale score 13-15, at arrival to emergency department; W06.XXXA Fall from bed, initial encounter; Y92.009 Unspecified place in unspecified non-institutional (private) residence as the place of occurrence of the external cause
CPT/HCPCS: J0696; J3010

== ENCOUNTER 2021-02-11 08:00 | Outpatient (RCR) | payer OTHER ==
[~2021-02-11 08:00] MED LIST changes: +MOBIC 7.5MG7.5 MG PO; +OMNICEF 300MG300 MG PO; +OS-CAL 500 + D1 TAB; +[UNRECOGNIZED DRUG - OTHER] DT
== END 2021-02-13 | disposition home or self-care (01) ==
LOC: MKS.ESL.PT
DX: M54.5 Low back pain (principal); R29.898 Other symptoms and signs involving the musculoskeletal system

== ENCOUNTER 2021-05-13 13:45 | Outpatient (RCR) | payer OTHER | END 2021-05-15 | disposition home or self-care (01) | LOC: MKS.ESL.PT | DX: M54.50 Low back pain, unspecified (principal) ==

== ENCOUNTER 2021-07-28 14:45 | Outpatient (RCR) | payer OTHER | END 2021-08-01 | LOC: MKS.ESL.PT | DX: M54.50 Low back pain, unspecified (principal); R29.898 Other symptoms and signs involving the musculoskeletal system ==

== ENCOUNTER → 2021-09-01 | Outpatient (RCR) | payer OTHER | END | disposition still patient (30) | LOC: MKS.ESL.PT | DX: M54.50 Low back pain, unspecified (principal); R29.898 Other symptoms and signs involving the musculoskeletal system ==

== ENCOUNTER → 2021-10-19 13:59 | Outpatient (RCR) | payer OTHER | END | disposition still patient (30) | LOC: MKS.ESL.PT 09-06 08:00 | DX: M54.50 Low back pain, unspecified (principal); R29.898 Other symptoms and signs involving the musculoskeletal system ==

== ENCOUNTER → 2021-11-01 | Outpatient (RCR) | payer OTHER ==
[~2021-11-01] MED LIST changes: +ALEVE 220MG220 MG; +[UNRECOGNIZED DRUG - OTHER] TP
== END | disposition still patient (30) ==
LOC: MKS.ESL.PT
DX: M25.561 Pain in right knee (principal)

== ENCOUNTER 2021-11-16 11:31 | Observation (INO) | payer OTHER ==
[~2021-11-16] VITALS: Ht 160 cm; Wt 83.9 kg
[~2021-11-16 11:31] MED LIST changes: -ALEVE 220MG220 MG; -[UNRECOGNIZED DRUG - OTHER] TP
[2021-11-16 12:50] LABS: BASO # 0.1 K/mm3 (0.0-0.2); BASO % 1.2 % (0.0-2.0); EOS # 0.3 K/mm3 (0.0-0.7); GRAN # 4.4 K/mm3 (1.4-6.5); GRAN % 56.5 % (42.2-75.2); HEMATOCRIT 39.7 % (37.0-47.0); LYMPH # 2.4 K/mm3 (1.2-3.4); LYMPH % 30.5 % (20.0-51.0); MEAN CELL VOLUME 94 fl (80.0-100.0); MEAN CORPUSCULAR HEMOGLOBIN 31 pg (27-31); MEAN CORPUSCULAR HGB CONC 33 g/dl (33.0-37.0); MEAN PLATELET VOLUME 10.8 fl (7.4-10.4); MONO # 0.6 K/mm3 (0.1-0.6); MONO % 7.7 % (1.7-9.3); PLATELET COUNT 236 K/mm3 (130-400); RED BLOOD COUNT 4.21 M/mm3 (4.10-5.30); REDCELL DISTRIBUTION WIDTH-CV 13.4 % (11.5-14.5)
[2021-11-16 12:56] LABS: COLLECTION METHOD CLEAN CATCH
[2021-11-16 13:02] LABS: MUCOUS Present (NOT PRESENT); PH 6 (5-8); URINE APPEARANCE Hazy (CLEAR/HAZY); URINE BACTERIA None Seen /hpf (NONE SEEN); URINE BILIRUBIN Negative (NEGATIVE); URINE BLOOD Negative (NEGATIVE); URINE COLOR Yellow (YELLOW); URINE GLUCOSE Negative (NEGATIVE); URINE KETONE Negative (NEGATIVE); URINE LEUKOCYTE ESTERASE 1+ (NEGATIVE); URINE NITRATE Negative (NEGATIVE); URINE PROTEIN(semi-quant) Negative (NEGATIVE); URINE RBC 0-2 /hpf (0-2); URINE UROBILINOGEN Negative (NEGATIVE)
[2021-11-16 13:08] LABS: ALBUMIN 3.7 gm/dL (3.4-4.8); BILIRUBIN,TOTAL 0.5 mg/dL (0.2-1.2); CALCIUM 9.2 mg/dL (8.4-10.2); CREATININE, serum 0.74 mg/dL (0.57-1.11)
[2021-11-16] MEDS ORDERED: ALEVE 220MG220 MG (14:59)
[2021-11-16 15:03] LABS: CHOLESTEROL RISK RATIO 3.4
--- NOTE | 2021-11-16 15:40 | NUR ---
PT TO FLOOR FROM ER
[2021-11-16 15:45] VITALS: BP 152/73; PULSE 86; TEMP 98
[2021-11-16] MEDS ORDERED: [UNRECOGNIZED DRUG - OTHER] TP (16:15)
--- NOTE | 2021-11-16 18:24 | NUR ---
PT LAYING SUPINE IN BED. PT STATES THAT SHE HAS A HEADACHE AND WOUDL JUST LIKE TO REST AND TRY TO FEEL BETTER. PT STATES NO OTHER NEEDS/CONCERNS AT THIS TIME. CALL LIGHT IS WITHIN REACH.
[2021-11-16 20:48] VITALS: BP 157/82; PULSE 63; TEMP 98.3
[2021-11-17] VITALS (11 sets, daily range): BP systolic 143–189; BP diastolic 46–78; PULSE 66–81; TEMP 98.2–98.6
--- NOTE | 2021-11-17 06:26 | NUR ---
[facility] DOWN FROM [phone]. SEE PAPER CHART ON PT'S CHART FOR END OF SHIFT REPORT, MEDICATIONS ADMINISTERED, VITALS.
[2021-11-17 07:08] LABS: BASO # 0.1 K/mm3 (0.0-0.2); BASO % 0.9 % (0.0-2.0); EOS # 0.2 K/mm3 (0.0-0.7); EOS % 3.6 % (0.0-4.0); GRAN # 3.4 K/mm3 (1.4-6.5); GRAN % 53.8 % (42.2-75.2); HEMATOCRIT 37.5 % (37.0-47.0); HEMOGLOBIN 12.4 g/dl (12.5-16.0); LYMPH # 2.1 K/mm3 (1.2-3.4); LYMPH % 32.4 % (20.0-51.0); MEAN CELL VOLUME 93 fl (80.0-100.0); MEAN CORPUSCULAR HEMOGLOBIN 31 pg (27-31); MEAN CORPUSCULAR HGB CONC 33 g/dl (33.0-37.0); MONO # 0.6 K/mm3 (0.1-0.6); MONO % 9.1 % (1.7-9.3); PLATELET COUNT 219 K/mm3 (130-400); RED BLOOD COUNT 4.02 M/mm3 (4.10-5.30); REDCELL DISTRIBUTION WIDTH-CV 13.2 % (11.5-14.5)
[2021-11-17 07:26] LABS: ALBUMIN 3.1 gm/dL (3.4-4.8); CALCIUM 8.6 mg/dL (8.4-10.2); CREATININE, serum 0.68 mg/dL (0.57-1.11); MAGNESIUM 1.8 mg/dL (1.6-2.6); PHOSPHOROUS 2.9 mg/dL (2.3-4.7); POTASSIUM 3.5 mmol/L (3.5-4.5)
--- NOTE | 2021-11-17 09:30 | NUR ---
PT SITTING UP ON SIDE OF BED ON ROOM AIR. PT A&O X3. PT STATES THAT SHE IS HAVING A HEADACHE. PRN TYLENOL WAS GIVEN. PT STATES NO OTHER NEEDS AT THIS TIME. ECHO WAS A T BEDSIDE AND HAS BEEN COMPLETED. CALL LIGHT IS WITHIN REACH.
--- NOTE | 2021-11-17 11:30 | NUR ---
Outbound Sales Specialist met with patient to discuss discharge planning. Patient lives alone in [place] and goes to the [facility] for primary care and medications. Patient has a walker and cane at home for ambulation and reports she is independent with ADLS. Patient advised she does prefer to shower when someone is there at the house in case she were to fall or need assistance. PT/OT worked with patient and are recommending home. Patient reports she plans to return home at time of discharge. Patient states her daughter, Erin (ph#[phone]) is her DPOA-HC. SW contacted Erin and her , Alex answered the phone. SW reviewed discharge plan with Alex as Erin was unavailable at the time. Discharge Plan: Home
--- NOTE | 2021-11-17 13:35 | NUR ---
PT OFF FLOOR TO SURG
--- NOTE | 2021-11-17 14:11 | NUR ---
ATTEMPTED TO CONTACT MRI SEVERAL DIFFERENT TIMES THROUGHOUT THE DAY AND NO ANSWER. CALLED [phone] AND [phone] NO ANSWER AT EITHER NUMBERS.
[2021-11-17] MEDS ORDERED: PLAVIX 75MG TAB75 MG PO (14:33)
[2021-11-17] MEDS ORDERED: ASPIRIN 81M81 MG/TA2 PO (14:44)
[2021-11-17] MEDS ORDERED: LIPITOR 40MG TA40 MG PO (14:45)
--- NOTE | 2021-11-17 18:29 | NUR ---
PT LAYING SUPINE IN BED WITH DAUGHTER AT [facility]. PT STATES THAT SHE IS READY TO GO HOME. PT DOES WANT TO WAIT FOR DR. ALCARAZ TO COME THIS EVENING AND SEE HER BEFORE SHE LEAVES. PT DISCHARGE PAPER WORK IS COMPLETED AND READY TO BE GIVEN. PT DID HAVE ONE EPISODE OF VOMITING AFTER EATING DINNER. PT STATES "IM OK, I DO THAT EVERY NOW AND THEN." PT STATES NO PAIN OR NEEDS AT THIS TIME. CALL LIGHT IS WITHIN REACH.
--- NOTE | 2021-11-17 19:55 | NUR ---
DISCHARGE PAPERWORK AND INSTRUCTIONS REVIEWED WITH PT AND HER DAUGHTER. ALL QUESTIONS ANSWERED AT THIS TIME. PT DENIED ANY COMPLAINTS. INT TO LEFT WRIST DC'd, CATHETER TIP INTACT. PT WHEELED OUT OF FACILTY IN WHEELCHAIR WITH DAUGHTER AT HER SIDE, BY MYSELF.
== END 2021-11-17 19:55 | disposition home or self-care (01) ==
LOC: COL.ER 11:31 → MEDICAL 14:31
PROVIDERS: Physician Assistant; ADMIT Internal Medicine
DX: G45.9 Transient cerebral ischemic attack, unspecified (principal); I49.3 Ventricular premature depolarization; I10 Essential (primary) hypertension; Z87.891 Personal history of nicotine dependence; Z79.82 Long term (current) use of aspirin; Z79.01 Long term (current) use of anticoagulants; I08.1 Rheumatic disorders of both mitral and tricuspid valves
CPT/HCPCS: G0378; J0696; J1650; J2704; J7030

== ENCOUNTER 2021-11-29 13:30 | Outpatient (RCR) | payer OTHER ==
[~2021-11-29 13:30] MED LIST changes: +ALEVE 220MG220 MG; +ASPIRIN 81M81 MG/TA2 PO; +LIPITOR 40MG TA40 MG PO; +PLAVIX 75MG TAB75 MG PO; +[UNRECOGNIZED DRUG - OTHER] TP
== END 2021-12-01 | disposition home or self-care (01) ==
LOC: MKS.ESL.PT
DX: M25.561 Pain in right knee (principal)

== ENCOUNTER 2021-12-29 15:00 | Outpatient (RCR) | payer OTHER | END 2022-01-01 | disposition home or self-care (01) | LOC: MKS.ESL.PT | DX: M25.561 Pain in right knee (principal) ==

== ENCOUNTER 2022-01-17 15:15 | Outpatient (RCR) | payer OTHER | END 2022-02-01 | disposition home or self-care (01) | LOC: MKS.ESL.PT | DX: M25.561 Pain in right knee (principal) ==

== ENCOUNTER 2022-06-05 21:30 | Emergency (ER) | payer MEDICARE, OTHER ==
[~2022-06-05] VITALS: Ht 157.5 cm; Wt 84.1 kg
[~2022-06-05 21:30] MED LIST changes: +CEPHALEXIN500 M1 PO; +NORCO 325 MG-51 TAB PO
[2022-06-05 21:33] VITALS: TEMP 97.7
[2022-06-05 22:06] LABS: BASO % 0.5 % (0.0-2.0); EOS # 0.1 K/mm3 (0.0-0.7); EOS % 1.8 % (0.0-4.0); GRAN # 4.4 K/mm3 (1.4-6.5); GRAN % 56.6 % (42.2-75.2); HEMATOCRIT 41.9 % (37.0-47.0); HEMOGLOBIN 13.9 g/dl (12.5-16.0); LYMPH # 2.4 K/mm3 (1.2-3.4); LYMPH % 31.2 % (20.0-51.0); MEAN CELL VOLUME 95 fl (80.0-100.0); MEAN CORPUSCULAR HEMOGLOBIN 31 pg (27-31); MEAN CORPUSCULAR HGB CONC 33 g/dl (33.0-37.0); MONO # 0.7 K/mm3 (0.1-0.6); MONO % 9.3 % (1.7-9.3); PLATELET COUNT 218 K/mm3 (130-400); RED BLOOD COUNT 4.43 M/mm3 (4.10-5.30); REDCELL DISTRIBUTION WIDTH-CV 13.2 % (11.5-14.5)
[2022-06-05 22:13] LABS: PROTHROMBIN TIME 10.9 SECONDS (9.7-12.8)
[2022-06-05 22:15] LABS: PARTIAL THROMBOPLASTIN TIME 30.9 SECONDS (26.0-37.0)
[2022-06-05 22:30] LABS: ALBUMIN 3.5 gm/dL (3.4-4.8); BILIRUBIN,TOTAL 0.5 mg/dL (0.2-1.2); CALCIUM 9.3 mg/dL (8.4-10.2); CREATININE, serum 0.78 mg/dL (0.57-1.11); POTASSIUM 3.6 mmol/L (3.5-4.5); TOTAL PROTEIN 6.8 gm/dL (6.2-8.1)
[2022-06-05 22:37] LABS: ERYTHROCYTE SEDIMENTATION RATE 8 mm/hr (0-30)
[2022-06-06 00:22] VITALS: BP 160/68; PULSE 80
== END 2022-06-06 00:22 | disposition home or self-care (01) ==
LOC: COL.ER 21:30
PROVIDERS: Emergency Medicine
DX: R51.9 Headache, unspecified (principal); Z88.5 Allergy status to narcotic agent
CPT/HCPCS: J0360; J1885; J2405; J2765; J3010; J7030

== ENCOUNTER 2022-08-30 08:30 | Outpatient (RCR) | payer MEDICARE, OTHER | END 2022-09-01 | disposition home or self-care (01) | LOC: MKS.ESL.PT | DX: G45.9 Transient cerebral ischemic attack, unspecified (principal); M54.50 Low back pain, unspecified; G89.29 Other chronic pain ==

== ENCOUNTER 2022-09-02 08:39 | Emergency (ER) | payer OTHER ==
[~2022-09-02] VITALS: Ht 157.5 cm; Wt 77.3 kg
[2022-09-02 10:42] VITALS: BP 166/81; PULSE 60; TEMP 97.5
== END 2022-09-02 10:43 | disposition home or self-care (01) ==
LOC: COL.ER 08:39
DX: M54.50 Low back pain, unspecified (principal); Z86.73 Personal history of transient ischemic attack (TIA), and cerebral infarction without residual deficits; Z98.890 Other specified postprocedural states; Z79.02 Long term (current) use of antithrombotics/antiplatelets; V40.6XXA Car passenger injured in collision with pedestrian or animal in traffic accident, initial encounter; Y92.410 Unspecified street and highway as the place of occurrence of the external cause

== ENCOUNTER 2022-09-27 08:30 | Outpatient (RCR) | payer MEDICARE, OTHER | END 2022-10-01 | disposition home or self-care (01) | LOC: MKS.ESL.PT | DX: M54.50 Low back pain, unspecified (principal); G89.29 Other chronic pain; G45.9 Transient cerebral ischemic attack, unspecified ==

== ENCOUNTER 2023-02-21 08:15 | Outpatient (RCR) | payer MEDICARE, OTHER | END 2023-03-03 | disposition home or self-care (01) | LOC: MKS.ESL.PT | DX: R26.9 Unspecified abnormalities of gait and mobility (principal); R29.6 Repeated falls; R53.81 Other malaise; M54.50 Low back pain, unspecified; G89.29 Other chronic pain ==

== ENCOUNTER 2023-07-03 09:03 | Outpatient (RCR) | payer MEDICARE, OTHER | END 2023-07-04 | LOC: MKS.ESL.PT | DX: M25.561 Pain in right knee (principal); M25.562 Pain in left knee; M54.41 Lumbago with sciatica, right side; G89.29 Other chronic pain ==

== ENCOUNTER 2023-08-01 08:00 | Outpatient (RCR) | payer MEDICARE, OTHER | END 2023-08-02 | disposition home or self-care (01) | LOC: MKS.ESL.PT | DX: M25.561 Pain in right knee (principal); M25.562 Pain in left knee; M54.41 Lumbago with sciatica, right side; G89.29 Other chronic pain ==

== ENCOUNTER 2023-11-22 16:07 | Emergency (ER) | payer MEDICARE, OTHER ==
[~2023-11-22] VITALS: Ht 157.5 cm; Wt 77.3 kg
[2023-11-22 16:21] VITALS: TEMP 98.6
[2023-11-22] MEDS ORDERED: Morphine 4 MG/ML VIAL IV ONE (18:00)
[2023-11-22] MEDS ORDERED: Ondansetron 4 MG/2 ML VIAL IV ONE (18:00)
[2023-11-22 18:20] LABS: BASO # 0.1 K/mm3 (0.0-0.2); BASO % 0.8 % (0.0-2.0); EOS # 0.1 K/mm3 (0.0-0.7); GRAN # 3.3 K/mm3 (1.4-6.5); GRAN % 50.3 % (42.2-75.2); HEMATOCRIT 41.2 % (37.0-47.0); HEMOGLOBIN 13.2 g/dl (12.5-16.0); LYMPH # 2.4 K/mm3 (1.2-3.4); MEAN CELL VOLUME 95 fl (80.0-100.0); MEAN CORPUSCULAR HEMOGLOBIN 31 pg (27-31); MEAN CORPUSCULAR HGB CONC 32 g/dl (33.0-37.0); MEAN PLATELET VOLUME 10.7 fl (7.4-10.4); MONO # 0.7 K/mm3 (0.1-0.6); MONO % 10.3 % (1.7-9.3); PLATELET COUNT 261 K/mm3 (130-400); RED BLOOD COUNT 4.33 M/mm3 (4.10-5.30); REDCELL DISTRIBUTION WIDTH-CV 13.8 % (11.5-14.5)
[2023-11-22] MEDS ORDERED: LR 1,000 ML IV ONE (18:45)
[2023-11-22 18:49] LABS: ALBUMIN 3.4 g/dL (3.4-4.8); BILIRUBIN,TOTAL 0.4 mg/dL (0.2-1.2); CALCIUM 9.5 mg/dL (8.4-10.2); CREATININE, serum 0.95 mg/dL (0.57-1.11); POTASSIUM 4.2 mEq/L (3.5-4.5); TOTAL PROTEIN 6.8 g/dl (6.2-8.1)
[2023-11-22 20:46] LABS: COLLECTION METHOD CLEAN CATCH
[2023-11-22 20:52] LABS: PH 6.5 (5.0-8.5); URINE APPEARANCE CLEAR (CLEAR/HAZY); URINE BLOOD NEGATIVE (NEGATIVE); URINE COLOR YELLOW (YELLOW); URINE GLUCOSE NEGATIVE (NEGATIVE); URINE KETONE NEGATIVE (NEGATIVE); URINE NITRATE NEGATIVE (NEGATIVE); URINE PROTEIN(semi-quant) NEGATIVE (NEGATIVE)
[2023-11-22] MEDS ORDERED: PERCOCET 325 MG1 TA2 PO (21:19)
[2023-11-22] MEDS ORDERED: ZOFRAN ODT4 MG PO (21:19)
[2023-11-22 21:44] VITALS: BP 153/74; PULSE 66
== END 2023-11-22 21:44 | disposition home or self-care (01) ==
LOC: COL.ER 16:07
PROVIDERS: Emergency Medicine
DX: M25.552 Pain in left hip (principal)
CPT/HCPCS: J2270; J2405; J7120

== ENCOUNTER → 2023-11-23 | Outpatient (CLI) | payer MEDICARE, OTHER ==
[~2023-11-23] MED LIST changes: +NIZORAL SHAMPO120 M1 TP; +NYSTATIN OR100 MU/ML PO; +PROTONIX20 MG PO; +ZOFRAN ODT4 MG PO
== END ==
LOC: COL.RAD 07:42
DX: M79.605 Pain in left leg (principal)

== ENCOUNTER 2024-01-01 14:01 | Observation (INO) | payer OTHER ==
[~2024-01-01] VITALS: Ht 157.5 cm; Wt 81.3 kg
[~2024-01-01 14:01] MED LIST changes: -NIZORAL SHAMPO120 M1 TP; -NYSTATIN OR100 MU/ML PO; -PROTONIX20 MG PO
[2024-01-01 14:40] LABS: BASO # 0.1 K/mm3 (0.0-0.2); BASO % 0.5 % (0.0-2.0); EOS % 0.1 % (0.0-4.0); GRAN % 76.5 % (42.2-75.2); HEMATOCRIT 39.8 % (37.0-47.0); HEMOGLOBIN 12.7 g/dl (12.5-16.0); LYMPH % 18.8 % (20.0-51.0); MEAN CELL VOLUME 99 fl (80.0-100.0); MEAN CORPUSCULAR HEMOGLOBIN 31 pg (27-31); MEAN CORPUSCULAR HGB CONC 32 g/dl (33.0-37.0); MEAN PLATELET VOLUME 11.2 fl (7.4-10.4); MONO # 0.4 K/mm3 (0.1-0.6); MONO % 3.7 % (1.7-9.3); PLATELET COUNT 243 K/mm3 (130-400); RED BLOOD COUNT 4.04 M/mm3 (4.10-5.30); REDCELL DISTRIBUTION WIDTH-CV 14.3 % (11.5-14.5)
[2024-01-01 14:58] LABS: ALBUMIN 3.6 g/dL (3.4-4.8); BILIRUBIN,TOTAL 0.8 mg/dL (0.2-1.2); CALCIUM 9.5 mg/dL (8.4-10.2); CREATININE, serum 0.78 mg/dL (0.57-1.11)
[2024-01-01] MEDS ORDERED: NS 100 ML IV SCH (15:10)
[2024-01-01] MEDS ORDERED: Iohexol 300 - 100 ML VIAL IV ONE (15:10)
[2024-01-01 15:18] LABS: TROPONIN-I 0.019 ng/mL (0.00-0.033); TSH w REFLEX 0.79 uIU/mL (0.350-4.940)
[2024-01-01 15:23] LABS: COLLECTION METHOD CATHETER
[2024-01-01 15:31] LABS: URINE APPEARANCE CLEAR (CLEAR/HAZY); URINE BLOOD NEGATIVE (NEGATIVE); URINE COLOR YELLOW (YELLOW); URINE GLUCOSE NEGATIVE (NEGATIVE); URINE KETONE 1+ (NEGATIVE); URINE NITRATE NEGATIVE (NEGATIVE); URINE PROTEIN(semi-quant) TRACE (NEGATIVE)
[2024-01-01 15:49] LABS: SQUAMOUS EPITHELIAL 0-2 /hpf (0-10); URINE BACTERIA RARE /hpf (NONE SEEN); URINE RBC 0-2 /hpf (0-2); URINE WBC 0-2 /hpf (0-2)
[2024-01-01 15:50] LABS: MUCOUS PRESENT (NOT PRESENT)
[2024-01-01] MEDS ORDERED: Acetaminophen 500 MG TAB PO ONE (16:30)
[2024-01-01] MEDS ORDERED: Acetaminophen 325 MG TAB PO PRN (16:45)
[2024-01-01] MEDS ORDERED: Ondansetron 4 MG/2 ML VIAL IV PRN (16:45)
[2024-01-01] MEDS ORDERED: Docusate Sodium 100 MG CAP PO PRN (16:45)
[2024-01-01] MEDS ORDERED: Polyethylene Glycol 3350 17 GM PDS PO PRN (16:45)
--- NOTE | 2024-01-01 18:20 | NUR ---
PT TO FLOOR AT THIS TIME VIA STRETCHER. USED SLIDEBOARD TO TRANSFER. WEARING GLASSES. ON ROOM AIR. 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 CHITIMACHA MAINLY IN RIGHT EAR. USES CANE AT HOME REGULARLY. YADIEL (DAUGHTER) AT BEDSIDE. DAUGHTER STATES SHE WILL BRING IN MED LIST FROM PT'S HOME. PT DENIES PAIN. A&O X3. DAUGHTER STATES SHE IS MORE LUCID FROM THIS MORNING. PLAN TO DO ECHO AND MRI TOMORROW. PT AND DAUGHTER AGREE TO PLAN. NO FURTHER CONCERNS.
[2024-01-01 18:23] VITALS: BP 163/84; PULSE 69; TEMP 98.2
--- NOTE | 2024-01-01 18:52 | NUR ---
BEDSIDE SWALLOW COMPLETED. NO ISSUES WITH LIQUIDS OR SOLIDS. NO COUGHING NOTED. PT MISSING SOME TEETH AND REQUESTING SOFT AND BITE SIZED FOOD. DIET CHANGE AND DINNER ORDERED.
--- NOTE | 2024-01-01 19:24 | NUR ---
PATIENT SITTING UP IN BED WITH DAUGHTER AT BEDSIDE WITH TV ON WITH NO ACUTE DISTRESS NOTED. PATIENT ON ROOM AIR. INT TO LEFT WRIST INTACT WITH NO COMPLICATIONS NOTED. TELEMETRY INTACT. BEDSIDE SHIFT REPORT COMPLETED WITH MANJULA AT THIS TIME. PATIENT DENIES ANY NEEDS. BED IN LOW POSITION WITH WHEELS LOCKED WITH RAILS UP X2 AND CALL LIGHT WITHIN REACH.
[2024-01-01 20:35] VITALS: BP_SYST 122
--- NOTE | 2024-01-01 20:35 | NUR ---
PATIENT RESTING IN BED WITH TV ON WITH DAUGHTER AT BEDSIDE WITH NO ACUTE DISTRESS NOTED. PATIENT ON ROOM AIR. TELEMETRY INTACT. INT TO LEFT WRIST INTACT WITH NO COMPLICATIONS NOTED. INITAL INTAKE AND INTIAL ASSESSMENT COMPLETED AT THIS TIME. PATIENT TOELRATED WELL. DAUGHTER STATED SHE WOULD PROVIDE MED REC ONCE HOME. PATIENT DENIES ANY NEEDS AT THIS TIME. IV FLUSHED. PATINET TOLERATED WELL. BED IN LOW POSITION WITH WHEELS LOCKED WITH RAILS UP X3 AND CALL LIGHT WITHIN REACH. BED ALARM ON.
[2024-01-01 20:39] VITALS: BP 122/55; PULSE 71; TEMP 98.6
[2024-01-01 23:06] VITALS: BP 158/59; PULSE 83; TEMP 98.1
[2024-01-01] MEDS ORDERED: NEURONTIN100 MG/CAP PO (23:53)
[2024-01-01] MEDS ORDERED: NYSTATIN OR100 MU/ML PO (23:59)
[2024-01-02] VITALS (11 sets, daily range): BP systolic 111–158; BP diastolic 59–78; PULSE 57–88; TEMP 97.4–98.5
[2024-01-02] MEDS ORDERED: PROTONIX20 MG PO
--- NOTE | 2024-01-02 07:12 | NUR ---
Bedside report receievd from MINH Nunn. Pt awake in bed with no complaints. Call light within reach and fall precautions in place.
[2024-01-02 07:42] LABS: BASO # 0.1 K/mm3 (0.0-0.2); BASO % 0.8 % (0.0-2.0); EOS # 0.1 K/mm3 (0.0-0.7); EOS % 1.8 % (0.0-4.0); GRAN # 3.7 K/mm3 (1.4-6.5); GRAN % 50.5 % (42.2-75.2); HEMATOCRIT 38.1 % (37.0-47.0); HEMOGLOBIN 12.4 g/dl (12.5-16.0); LYMPH # 2.7 K/mm3 (1.2-3.4); LYMPH % 36.5 % (20.0-51.0); MEAN CELL VOLUME 95 fl (80.0-100.0); MEAN CORPUSCULAR HEMOGLOBIN 31 pg (27-31); MEAN CORPUSCULAR HGB CONC 33 g/dl (33.0-37.0); MEAN PLATELET VOLUME 11.4 fl (7.4-10.4); MONO # 0.7 K/mm3 (0.1-0.6); MONO % 9.8 % (1.7-9.3); PLATELET COUNT 235 K/mm3 (130-400); RED BLOOD COUNT 4.03 M/mm3 (4.10-5.30); REDCELL DISTRIBUTION WIDTH-CV 14.3 % (11.5-14.5)
[2024-01-02 08:05] LABS: CALCIUM 9.3 mg/dL (8.4-10.2); CREATININE, serum 0.71 mg/dL (0.57-1.11); POTASSIUM 3.8 mEq/L (3.5-4.5)
[2024-01-02] MEDS ORDERED: NIZORAL SHAMPO120 M1 TP (09:10)
[2024-01-02] MEDS ORDERED: Clopidogrel 75 MG TAB PO SCH (10:54)
[2024-01-02] MEDS ORDERED: Gadoterate 20 ML VIAL IV ONE (12:30)
--- NOTE | 2024-01-02 12:34 | NUR ---
rattan worker and SW Student met with patient and her daughter, Erin, P# [phone], to discuss discharge planning. PCP is Dr. Landaverde, Pharmacy is [facility] [address]. No issues affording medications. Patient reports her insurance is Medicare A and B, [employer] and [employer]. DPOA-HC is Erin. Erin did not have a copy of it but she believed there was a copy at her PCP. DME is cane, walker and rollator walker. Patient has home care with [facility] and they help with bathing and any other needs in the home. Patient reports to have outpatient PT at [facility] for her back and right shoulder. Patient has been able to transport herself to and from appointments so far. Patient would like to return home at time of discharge. rattan worker contacted [facility] and expressed needing a copy of the DPOA-HC. [facility] reports they have the DPOA and will fax it over to the hospital. RAHEEL notified financial regarding patient stating she has insurances that were not currently listed in her system. Discharge plan: Home
--- NOTE | 2024-01-02 19:00 | NUR ---
PATIENT RESTING IN BED SITTING UP WITH TV ON WITH DAUGHTER AT BEDSIDE WITH NO ACUTE DISTRESS NOTED. PATIENT ON ROOM AIR. INT TO LEFT WRIST INTACT WITH NO COMPLICATIONS NOTED. TELEMETRY INTACT. BEDSIDE SHIFT REPORT COMPLETED WITH SIGRID AT THIS TIME. PATIENT DENIES ANY NEEDS. BED IN LOW POSITION WITH WHEELS LOCKED WITH RAILS UP X3 AND CALL LIGHT WITHIN REACH. BED ALARM ON.
--- NOTE | 2024-01-02 19:05 | NUR ---
PATIENT RESTING IN BED WITH DAUGHTER AT BEDSIDE WITH TV ON WITH NO ACUTE DISTRESS NOTED. PATIENT ON ROOM AIR. TELEMETRY INTACT. INT TO LEFT WRIST INTACT WITH NO COMPLICATIONS NOTED. ASSESSMENT COMPLETED AT THIS TIME. PATIENT TOLERATED WELL. PATIENT REQUESTED TYLENOL WITH NIGHT TIME MEDICATIONS AND VERBALIZED UNDERSTANDING THAT IT WOULD BE GIVEN. ALL NEEDS MET. BED IN LOW POSITION WITH WHEELS LOCKED WITH RAILS UP X3 AND CALL LIGHT WITHIN REACH. BED ALARM ON.
--- NOTE | 2024-01-02 19:06 | NUR ---
Bedside report given to MINH Nunn. Pt awake in bed with daughter at bedside. Call light wtihin reach.
[2024-01-02] MEDS ORDERED: ARIPiprazole 5 MG TAB PO SCH (21:00)
[2024-01-02] MEDS ORDERED: Atorvastatin 40 MG TAB PO SCH (21:00)
[2024-01-03 00:05] VITALS: BP_SYST 159
[2024-01-03 00:22] VITALS: BP 159/66; PULSE 90; TEMP 98.1
[2024-01-03 03:14] VITALS: BP 165/86; PULSE 98; TEMP 97.6
[2024-01-03 04:05] VITALS: BP_SYST 165
[2024-01-03 05:56] LABS: BASO # 0.1 K/mm3 (0.0-0.2); BASO % 0.9 % (0.0-2.0); EOS # 0.3 K/mm3 (0.0-0.7); EOS % 4.6 % (0.0-4.0); GRAN # 3.6 K/mm3 (1.4-6.5); GRAN % 53.2 % (42.2-75.2); HEMOGLOBIN 12.4 g/dl (12.5-16.0); LYMPH % 30.1 % (20.0-51.0); MEAN CELL VOLUME 94 fl (80.0-100.0); MEAN CORPUSCULAR HEMOGLOBIN 32 pg (27-31); MEAN CORPUSCULAR HGB CONC 34 g/dl (33.0-37.0); MEAN PLATELET VOLUME 11.1 fl (7.4-10.4); MONO # 0.7 K/mm3 (0.1-0.6); MONO % 10.8 % (1.7-9.3); PLATELET COUNT 224 K/mm3 (130-400); RED BLOOD COUNT 3.93 M/mm3 (4.10-5.30); REDCELL DISTRIBUTION WIDTH-CV 14.3 % (11.5-14.5)
[2024-01-03 06:03] LABS: HEMATOCRIT 36.8 % (37.0-47.0)
[2024-01-03 06:13] LABS: CALCIUM 9.1 mg/dL (8.4-10.2); CREATININE, serum 0.69 mg/dL (0.57-1.11); POTASSIUM 3.7 mEq/L (3.5-4.5)
--- NOTE | 2024-01-03 07:26 | NUR ---
Bedside report received from MINH Nunn. Pt awake in bed with no complaints. Call light within reach and fall precautions in place.
[2024-01-03 07:46] VITALS: BP 147/79; PULSE 101; TEMP 98
[2024-01-03 07:58] VITALS: BP_SYST 147
--- NOTE | 2024-01-03 07:59 | NUR ---
Pt awake in bed eating breakfast. Pt states that she would like regular coffee and not decaf. Coffee provided per pt request. Shift assessment completed. Pt is A&O x4. Neuro check completed. NSR on telemetry. Pt denies pain at this time rating 0/10. INT to Lt hand CDI. Pt ambulates x1 assist to bathroom and back to bed with no complications. Pt has no request at this time. Call light within reach and fall precautions in place.
[2024-01-03] MEDS ORDERED: ARIPiprazole 5 MG TAB PO SCH (09:00)
[2024-01-03] MEDS ORDERED: LIPITOR 40MG TA40 MG PO (09:01)
[2024-01-03] MEDS ORDERED: ASPIRIN 81M81 MG/TA2 PO (09:02)
[2024-01-03 09:03] LABS: CHOLESTEROL RISK RATIO 2.9
--- NOTE | 2024-01-03 09:04 | NUR ---
offal worker attended clinical rounding and was informed pt can discharge today with her OP PT at [facility] and [facility]. Pt reports to Dr. Her her daughter will arrive to pick her up. Discharge Plan: home with OP PT and bath aide
--- NOTE | 2024-01-03 11:16 | NUR ---
Discharge instructions provided to pt and daughter Erin. Pt verbalized understanding of discharge paperwork. INT to Lt hand discontinued with tip intact, pt tolerated well with no complaints. Telemetry discontinued. Pt is leaving facility with daughter back to home.
== END 2024-01-03 11:17 | disposition home or self-care (01) ==
LOC: COL.ER 14:01 → MEDICAL 17:55
PROVIDERS: Emergency Medicine; ADMIT Hospitalist
DX: F80.2 Mixed receptive-expressive language disorder (principal); I10 Essential (primary) hypertension; E78.5 Hyperlipidemia, unspecified; G93.40 Encephalopathy, unspecified; G62.9 Polyneuropathy, unspecified; F32.A Depression, unspecified; Z85.3 Personal history of malignant neoplasm of breast; Z86.73 Personal history of transient ischemic attack (TIA), and cerebral infarction without residual deficits; Z79.899 Other long term (current) drug therapy; Z79.02 Long term (current) use of antithrombotics/antiplatelets; Z79.82 Long term (current) use of aspirin
CPT/HCPCS: A9575; G0378; Q3014; Q9967

== ENCOUNTER → 2024-01-04 | Outpatient (CLI) | payer MEDICARE, OTHER ==
[~2024-01-04] MED LIST changes: +Gadoterate 20 ML VIAL IV ONE; +NIZORAL SHAMPO120 M1 TP; +NYSTATIN OR100 MU/ML PO; +PROTONIX20 MG PO
== END ==
LOC: COL.RAD 11:14
DX: M48.061 Spinal stenosis, lumbar region without neurogenic claudication (principal); M43.16 Spondylolisthesis, lumbar region; Z98.1 Arthrodesis status
CPT/HCPCS: A9575

== ENCOUNTER 2024-03-18 18:34 | Emergency (ER) | payer MEDICARE, OTHER ==
[~2024-03-18] VITALS: Ht 157.5 cm; Wt 125.0 kg
[~2024-03-18 18:34] MED LIST changes: -Gadoterate 20 ML VIAL IV ONE
[2024-03-18 18:52] VITALS: TEMP 97.9
[2024-03-18 20:30] VITALS: BP 146/78; PULSE 70
== END 2024-03-18 20:30 | disposition home or self-care (01) ==
LOC: COL.ER 18:34
DX: M25.522 Pain in left elbow (principal); M25.552 Pain in left hip; Z85.3 Personal history of malignant neoplasm of breast; Z79.01 Long term (current) use of anticoagulants; W18.39XA Other fall on same level, initial encounter

== ENCOUNTER 2024-05-01 06:18 | Emergency (ER) | payer OTHER ==
[~2024-05-01] VITALS: Ht 157.5 cm; Wt 79.1 kg
[2024-05-01 06:26] VITALS: TEMP 97.9
[2024-05-01] MEDS ORDERED: NS 500 ML IV ONE (07:15)
[2024-05-01 07:22] LABS: BASO # 0.1 K/mm3 (0.0-0.2); BASO % 0.4 % (0.0-2.0); EOS # 0.2 K/mm3 (0.0-0.7); EOS % 1.9 % (0.0-4.0); GRAN # 8.5 K/mm3 (1.4-6.5); GRAN % 74.8 % (42.2-75.2); HEMATOCRIT 38.2 % (37.0-47.0); HEMOGLOBIN 12.2 g/dl (12.5-16.0); LYMPH # 1.7 K/mm3 (1.2-3.4); LYMPH % 15.1 % (20.0-51.0); MEAN CELL VOLUME 101 fl (80.0-100.0); MEAN CORPUSCULAR HEMOGLOBIN 32 pg (27-31); MEAN CORPUSCULAR HGB CONC 32 g/dl (33.0-37.0); MEAN PLATELET VOLUME 11.1 fl (7.4-10.4); MONO # 0.8 K/mm3 (0.1-0.6); MONO % 7.4 % (1.7-9.3); PLATELET COUNT 233 K/mm3 (130-400); RED BLOOD COUNT 3.78 M/mm3 (4.10-5.30); REDCELL DISTRIBUTION WIDTH-CV 13.7 % (11.5-14.5)
[2024-05-01 07:24] LABS: PROTHROMBIN TIME 11.1 SECONDS (9.7-12.8)
[2024-05-01 07:33] LABS: PARTIAL THROMBOPLASTIN TIME 29.6 SECONDS (26.0-37.0)
[2024-05-01 07:44] LABS: ALBUMIN 3.3 g/dL (3.4-4.8); BILIRUBIN,TOTAL 0.5 mg/dL (0.2-1.2); CREATININE, serum 0.71 mg/dL (0.57-1.11); POTASSIUM 3.8 mEq/L (3.5-4.5); TOTAL PROTEIN 6.3 g/dl (6.2-8.1)
[2024-05-01 08:05] LABS: TROPONIN-I 0.178 ng/mL (0.00-0.033)
[2024-05-01] MEDS ORDERED: Ofloxacin 0.3% Ophth/Otic Soln 5 ML BOTTLE OP ONE (08:15)
[2024-05-01] MEDS ORDERED: Azithromycin 250 MG TAB PO ONE (08:15)
[2024-05-01 10:45] VITALS: BP 148/62; PULSE 61
== END 2024-05-01 11:00 | disposition short-term general hospital (02) ==
LOC: COL.ER 06:18
PROVIDERS: Emergency Medicine
DX: I21.4 Non-ST elevation (NSTEMI) myocardial infarction (principal); J40 Bronchitis, not specified as acute or chronic; H10.9 Unspecified conjunctivitis
CPT/HCPCS: J1650; J7040